=== PATIENT | female | born 1975 | race Caucasian/White ===

== ENCOUNTER 2016-11-20 05:47 | Day surgery (SDC) | payer OTHER, MEDICAID ==
[2016-11-17 09:27] LABS: BASOPHILS 0.3 % (0.0-2.0); EOSINOPHILS 0.9 % (0-7); HEMATOCRIT 46.3 % (36.0-48.0); HEMOGLOBIN 15.7 g/dL (12-16); IMMATURE GRANULOCYTES 0.4 % (0-5); LYMPHOCYTES 26.4 % (15-50); MCH 31.1 pg (26.0-34.0); MCHC 33.9 g/dL (31.0-37.0); MCV 91.7 fL (80.0-100.0); MEAN PLATELET VOLUME 9.3 fL (7.4-10.4); MONOCYTES 8.8 % (2-11); NEUTROPHILS 63.2 % (40-80); PLATELET COUNT 262 10x3/uL (130-400); RBC 5.05 10x6/uL (4.00-5.40); RDW 12.7 % (11.5-14.5); WBC 9.5 10x3/uL (4.8-10.8)
[~2016-11-20] VITALS: Ht 157.5 cm; Wt 99.8 kg
[~2016-11-20 05:47] MED LIST: ADVIL200 MG PO
[2016-11-20 06:22] VITALS: BP 108/73; Ht 157.5 cm; Wt 99.8 kg
[2016-11-20 06:31] LABS: HCG URINE NEGATIVE (NEGATIVE)
--- NOTE | 2016-11-20 08:07 | NUR ---
08 CALLED TO ROOM
--- NOTE | 2016-11-25 13:16 | OP ---
PATIENT NAME: KAYLA SEYMOUR MEDICAL RECORD: [id number] :79 LOCATION:[facility] ADMISSION DATE: SURGEON: EVY WOODWARD MD DATE OF OPERATION: 11/20/2016 PREOPERATIVE DIAGNOSES: 1. Low-grade squamous intraepithelial lesion Pap smear, CIN1 with positive endocervical curettage. 2. Persistent cervical dysplasia. POSTOPERATIVE DIAGNOSES: 1. Low-grade squamous intraepithelial lesion Pap smear, CIN1 with positive endocervical curettage. 2. Persistent cervical dysplasia. SURGEON: Evy Woodward MD ANESTHESIA: Laryngeal mask anesthesia with Nancy Sandhu CRNA. PROCEDURES: 1. Dilation and curettage. 2. Colposcopy with loop electrocautery excision procedure (LEEP). FINDINGS: Enlarged cervix with multiple nabothian cyst. Acetowhite epithelium noted at the 1 o'clock region of the transition zone, as well as the 10 o'clock region with extension of this acetowhite epithelium into the endocervical canal. Uterus sounded 10 cm. PROCEDURE IN DETAIL: After informed consent was given, the patient was taken to the operating room where laryngeal mask anesthesia was placed and found to be adequate. She was placed in a dorsal lithotomy position in [facility]. She was prepped and draped sterilely excluding an intravaginal prep. A red rubber catheter was placed into the bladder and bladder drained with approximately 100 cc of clear urine return. A bivalve speculum was then placed into the vagina and the cervix and vagina cleansed with vinegar solution. The colposcopy was then performed with findings as listed above. The cervix was then grasped anteriorly with a single-tooth tenaculum and the uterus was sounded, sounding to 10 cm. The cervix was then dilated to 7 mm and both sharp and suction curettage was employed until a gritty texture was noted circumferentially around the endometrial cavity. The single-tooth tenaculum was removed and pressure was held at the tenaculum sites with excellent hemostasis noted. The cervix was then injected locally with 12 cc of 1% lidocaine with epinephrine a 2, 4, 8, and 10 o'clock to aid in hemostasis. Vinegar was reapplied to the cervix as well as Lugol's solution. The acetowhite epithelial regions were again identified. The ectocervical portion of the LEEP procedure was then performed. Difficulty was encountered in obtaining the specimen due to the numerous nabothian cysts which ruptured in this process obscuring somewhat the specimen. Once the endocervical portion of the LEEP was completed, the square "cowboy hat" wire loop was then placed onto the LEEP device and the endocervical portion of the LEEP was obtained. This was also passed off the field as specimen. The rollerball was then replaced and the base of the LEEP was then cauterized. Monsel's was used additionally with excellent hemostasis noted. At completion of the procedure, the blue coated bivalve speculum was removed. The patient was returned to a supine position, awakened and taken into the recovery room in stable condition. The patient tolerated procedure well. Sponge, lap and instrument counts were OPERATIVE REPORT [id number] KAYLA SEYMOUR reported correct times 2. ESTIMATED BLOOD LOSS: Minimal. URINE OUTPUT: 100 cc. SPECIMENS: 1. Sharp and suction endometrial curettings. 2. Ectocervical portion of LEEP. 3. Endocervical portion of LEEP. COMPLICATIONS: None. TRANSINT:[id number] Voice Confirmation ID: [id number] DOCUMENT ID: [id number] EVY WOODWARD MD at 1316 CC: [id number] DICTATION DATE: 11/20/16 0848 PASTA PRESS OPERATOR: 11/20/16 1042 [facility] 11/20/16 [facility] [address] [place] [address]
[2017-01-12] MEDS ORDERED: PROVERA10 MG PO (08:59)
== END 2016-11-20 10:49 | disposition home or self-care (01) ==
LOC: D.OPS 05:47 → D.PAN 07:30 → D.OPS 07:30
PROVIDERS: Specialist
DX: N87.0 Mild cervical dysplasia (principal); N72 Inflammatory disease of cervix uteri; N88.8 Other specified noninflammatory disorders of cervix uteri

== ENCOUNTER 2016-12-12 10:56 | Emergency (ER) | payer OTHER, MEDICAID ==
[2016-11-20 06:22] VITALS: BMI 40.3
[2016-12-12 12:33] LABS: BASOPHILS 0.1 % (0.0-2.0); EOSINOPHILS 0.3 % (0-7); HEMATOCRIT 45.9 % (36.0-48.0); HEMOGLOBIN 15.6 g/dL (12-16); IMMATURE GRANULOCYTES 0.4 % (0-5); LYMPHOCYTES 10.9 % (15-50); MCH 30.6 pg (26.0-34.0); MCV 90.2 fL (80.0-100.0); MEAN PLATELET VOLUME 9.4 fL (7.4-10.4); NEUTROPHILS 81.3 % (40-80); PLATELET COUNT 283 10x3/uL (130-400); RBC 5.09 10x6/uL (4.00-5.40); RDW 12.8 % (11.5-14.5); WBC 19.8 10x3/uL (4.8-10.8)
[2016-12-12 12:39] LABS: ALBUMIN 3.6 g/dL (3.4-5.0); ALKALINE PHOSPHATASE 76 U/L (46-116); ALT (SGPT) 28 U/L (10-68); BILIRUBIN - TOTAL 0.34 mg/dL (0.2-1.3); CALC OSMOLALITY 272 mosm/kg (275-300); CALCIUM 9.1 mg/dL (8.5-10.1); CARBON DIOXIDE 28.1 mmol/L (21.0-32.0); CHLORIDE - SERUM 101 mmol/L (98-107); CREATININE - SERUM 0.8 mg/dL (0.6-1.3); GLUCOSE 97 mg/dL (74-106); POTASSIUM - SERUM 3.9 mmol/L (3.5-5.1); PROTEIN - SERUM 7.7 g/dL (6.4-8.2); SODIUM 136 mmol/L (136-145); UREA NITROGEN 16 mg/dL (7-18); eGFR NON AFRICAN AMERICAN 85 mL/min (90-120)
[2016-12-12 12:39] LABS: APPEARANCE SLT CLOUDY (CLEAR); BACTERIA MODERATE /hpf (NONE SEEN); BILIRUBIN NEGATIVE (NEGATIVE); COLOR YELLOW (YELLOW); GLUCOSE NEGATIVE (NEGATIVE); KETONE NEGATIVE (NEGATIVE); LEUKOCYTE ESTERASE 1+ (NEGATIVE); MUCUS <1+ /lpf (NONE SEEN); NITRITE NEGATIVE (NEGATIVE); PROTEIN TRACE mg/dL (NEGATIVE); RED CELLS - URINE 0-5 /hpf (0-5); SPECIFIC GRAVITY 1.015 (1.005-1.020); UROBILINOGEN NORMAL (NORMAL)
[2016-12-12 13:25] LABS: AMYLASE - SERUM 32 U/L (25-115); LIPASE 113 U/L (73-393)
[2016-12-12 13:28] LABS: HCG URINE NEGATIVE (NEGATIVE)
[2016-12-12 13:44] LABS: HCG SERUM NEGATIVE (NEGATIVE)
[2017-01-12] MEDS ORDERED: PROVERA10 MG PO (08:59)
== END 2016-12-12 16:34 | disposition home or self-care (01) ==
LOC: D.ER 10:56
PROVIDERS: Emergency Medicine; Nurse Practitioner Acute Care
DX: K57.92 Diverticulitis of intestine, part unspecified, without perforation or abscess without bleeding (principal); F17.200 Nicotine dependence, unspecified, uncomplicated

== ENCOUNTER 2016-12-25 12:49 | Emergency (ER) | payer OTHER, MEDICAID ==
[2016-11-20 06:22] VITALS: BMI 40.3
[2016-12-25 13:59] LABS: HCG SERUM NEGATIVE (NEGATIVE)
[2016-12-25 14:55] LABS: BASOPHILS 0.4 % (0.0-2.0); EOSINOPHILS 0.9 % (0-7); HEMATOCRIT 45.6 % (36.0-48.0); HEMOGLOBIN 15.3 g/dL (12-16); IMMATURE GRANULOCYTES 0.4 % (0-5); LYMPHOCYTES 24.8 % (15-50); MCH 30.4 pg (26.0-34.0); MCHC 33.6 g/dL (31.0-37.0); MCV 90.5 fL (80.0-100.0); MEAN PLATELET VOLUME 9.7 fL (7.4-10.4); NEUTROPHILS 65.5 % (40-80); PLATELET COUNT 195 10x3/uL (130-400); RBC 5.04 10x6/uL (4.00-5.40); RDW 12.8 % (11.5-14.5)
[2017-01-12] MEDS ORDERED: PROVERA10 MG PO (08:59)
== END 2016-12-25 18:54 | disposition home or self-care (01) ==
LOC: D.ER 12:49
PROVIDERS: Emergency Medicine
DX: R10.9 Unspecified abdominal pain (principal)

== ENCOUNTER 2017-01-15 10:00 | Day surgery (SDC) | payer OTHER ==
[2017-01-12 09:26] LABS: BASOPHILS 0.3 % (0.0-2.0); EOSINOPHILS 0.9 % (0-7); HEMATOCRIT 44.8 % (36.0-48.0); HEMOGLOBIN 15.3 g/dL (12-16); IMMATURE GRANULOCYTES 0.6 % (0-5); LYMPHOCYTES 32.3 % (15-50); MCH 30.5 pg (26.0-34.0); MCHC 34.2 g/dL (31.0-37.0); MCV 89.4 fL (80.0-100.0); MONOCYTES 9.7 % (2-11); NEUTROPHILS 56.2 % (40-80); PLATELET COUNT 213 10x3/uL (130-400); RBC 5.01 10x6/uL (4.00-5.40); RDW 13.2 % (11.5-14.5); WBC 9.3 10x3/uL (4.8-10.8)
[2017-01-12 09:41] LABS: CALC OSMOLALITY 274 mosm/kg (275-300); CALCIUM 9.2 mg/dL (8.5-10.1); CARBON DIOXIDE 27.8 mmol/L (21.0-32.0); CHLORIDE - SERUM 102 mmol/L (98-107); CREATININE - SERUM 0.7 mg/dL (0.6-1.3); GLUCOSE 96 mg/dL (74-106); POTASSIUM - SERUM 4.1 mmol/L (3.5-5.1); SODIUM 138 mmol/L (136-145); UREA NITROGEN 9 mg/dL (7-18); eGFR NON AFRICAN AMERICAN > 90 mL/min (90-120)
[~2017-01-15] VITALS: Ht 157.5 cm; Wt 98.6 kg
[2017-01-15] VITALS (7 sets, daily range): BP systolic 108–139; BP diastolic 37–89; Ht 157.5 cm; Wt 98.6 kg
[~2017-01-15 10:00] MED LIST changes: +PROVERA10 MG PO
[2017-01-15 12:37] LABS: HCG URINE NEGATIVE (NEGATIVE)
--- NOTE | 2017-01-15 14:33 | NUR ---
PATIENT CALLED TO UPDATE REGARDING DELAY OF SURGICAL PROCEDURE.
--- NOTE | 2017-01-15 21:44 | NUR ---
THE PATIENT REPORTS PRESSURE DISCOMFORT
--- NOTE | 2017-01-15 22:00 | NUR ---
RECEIVED PT VIA STRETCHER FROM [facility] WITH DR CORTES, PT TO ROOM 1217, PT TRANSFERS SELF TO BED, ADMITTING ASSESSMENT STARTED, SEE FLOW SHEET, VS INTIATED Q15MIN, IV IN RIGHT HAND INTACT WITH NO REDNESS OR EDEMA, NEW BAG OF LR HUNG VIA PUMP INFUSING AT 125 ML/HR, UMB AND 2 LOWER LAP INC CDI WITH NO DRAINAGE NOTED, ICE PACK AND SMALL PILLOW PLACED ON ABD, AVENDAÑO CATH INTACT, AVENDAÑO EMPTIED IN SURGERY, PT DENIES FLATUS, SCD'S CONNECTED TO PUMP AND WORKING PROPERLY, FRSH H20 SERVED, BEDDING PROVIDED TO SPOUSE, PT ORIENTED TO ROOM, BED IN LOW POSITION, SIDE RAILS X 2, CALL LIGHT IN REACH
--- NOTE | 2017-01-15 22:13 | NUR ---
DEMEROL OFFICE MESSENGER INITIATED PER MATTY CLIFFORD RN AND NIMO WRIGHT RN
--- NOTE | 2017-01-15 22:45 | NUR ---
NIMO RWIGHT RN TO ROOM, VS CONTINUE AT THIS TIME
--- NOTE | 2017-01-15 23:21 | NUR ---
PATIENT IS AROUSABLE WHEN WALKING INTO ROOM. VSS. ASKED HER HER PAIN LEVEL AND SHE STATES SHE HAS PERITONEAL PRESSURE FROM HER VAGINAL PACKING. NO NUMBER GIVEN FOR HER NUMERICAL PAIN SCORE. NO NEEDS OR COMPLAINTS AT THIS TIME. IS AT BEDSIDE.
[2017-01-16 00:10] VITALS: BP 142/83
--- NOTE | 2017-01-16 00:10 | NUR ---
PATIENT AROUSED WHEN ENTERED ROOM. VSS. PIV IN LEFT HAND REMAINS PATENT. NO EDEMA OR REDNESS NOTED. AVENDAÑO CATH WAS EMPTIED. PATIENT IS RESTING WITH EYES CLOSED BUT RESPONSE TO QUESTIONS. NON LABORED RESP NOTED. NO DISTRESS NOTED AND NOT REQUEST AT THIS TIME. ICE BAG CHANGED OUT AND REFRESHED AND PLACED ON ABDOMEN. PATIENTS IS RESTING BESIDE PATIENT IN CHAIR. NO NEEDS VOICED AT THIS TIME.
--- NOTE | 2017-01-16 02:05 | NUR ---
PT STAFF NURSE ANESTHETIST LIGHT, PT REQUESTED AND COVERED UP WITH BLANKET, PT REPOSITIONED SELF TO LEFT SIDE WITH PILLOW HENDING BACK FOR COMFORT AND SUUUPOT, PT DENIES FURTHER NEEDS OR PAIN AT THIS TIME
--- NOTE | 2017-01-16 03:30 | NUR ---
PATIENT CALLED VIA CALL LIGHT. STATED HER ICE BAG WAS LEAKING. ICE BAG WAS LEAKING. CHANGED OUT BACK AND REFILLED WILL FRESH ICE. ALSO CHANGED PATIENT GOWN AND BLANKET AND SHEET. PATIENT DID WELL. REMINDED PATIENT TO PUSH SHELL MOLDER BUTTON IF NEEDED. PATIENT DID PUSH BUTTON. PATIENT HAS NO OTHER NEEDS AT THIS TIME. PATIENTS IS AT THE BEDSIDE RESTING.
[2017-01-16 04:15] VITALS: BP 126/79
--- NOTE | 2017-01-16 04:15 | NUR ---
PATIENT AROUSED UPON ENTERING ROOM. VSS. LEFT FOREARN PIV REMAINS PATENT, NO REDNESS OR EDEMA NOTED. EMPTIED AVENDAÑO BAG. REPOSITONED PATENT. PLACED CALL LIGHT AND GARBAGE TRUCK HELPER PUMP BUTTON WITHIN PATIENT REACH. PATIENT PUSHED PAIN BUTTON. NO OTHER NEEDS VOICED. PATIENTS IS SLEEPING IN CHAIR BESIDE PATIENT.
--- NOTE | 2017-01-16 05:49 | NUR ---
PT LICENSED PSYCHOLOGIST DIRECTOR LIGHT, NEW BAG OF LR HUNG INFUSING VIA PUMP AT 125 ML/HR, ADM TORADOL SIVP PER MD ORDERS, SEE EMAR, FRESH ICE PACK TO ABD, NO VAG BLEEDING NOTED, PT REPOSITONED SELF IN BED, DENIES FURTHER NEEDS AT THIS TIME
--- NOTE | 2017-01-16 06:50 | NUR ---
CHECKED IN ON PATIENT- PATIENT IS RESTING QUIETLY WITH EYES CLOSED. NON LABORED RESP. NO GRIMACING NOTED.
--- NOTE | 2017-01-16 07:00 | NUR ---
SHIFT REPORT TO MADHAVI LAM RN
[2017-01-16 07:19] LABS: BASOPHILS 0.1 % (0.0-2.0); EOSINOPHILS 0.1 % (0-7); HEMATOCRIT 37.9 % (36.0-48.0); HEMOGLOBIN 12.6 g/dL (12-16); IMMATURE GRANULOCYTES 0.4 % (0-5); LYMPHOCYTES 14.9 % (15-50); MCH 29.7 pg (26.0-34.0); MCHC 33.2 g/dL (31.0-37.0); MCV 89.4 fL (80.0-100.0); MEAN PLATELET VOLUME 9.1 fL (7.4-10.4); MONOCYTES 5.8 % (2-11); NEUTROPHILS 78.7 % (40-80); PLATELET COUNT 202 10x3/uL (130-400); RBC 4.24 10x6/uL (4.00-5.40)
--- NOTE | 2017-01-16 07:40 | NUR ---
PATIENT IS AWAKE AND ALERT, SITTING UP IN THE BED WITH HOB UP 45 DREGREES. AVENDAÑO CATHETER PATENT TO BEDSIDE COLLECTION BAG. SHAFTING WORKER AND IVF PATENT TO RIGHT HAND IV INSERTION SITE IS WITHOUT EVIDENCE OF REDNESS OR INFILTRATION. ICE PACK TO THE BIKINI INCISION DRESSING THAT IS C/D/I. HER VSS, LUNGS ARE CLEAR, HR RRR, SCD'S ARE ON AND PUMPING. CALL LIGHT, BREAKFAST AND SHAFTING WORKER BUTTON ARE WITHIN HER REACH I LEFT. SHE STATES THAT SHE IS VERY HUNGRY TODAY.
[2017-01-16 07:44] LABS: CALC OSMOLALITY 267 mosm/kg (275-300); CALCIUM 8.2 mg/dL (8.5-10.1); CARBON DIOXIDE 27.4 mmol/L (21.0-32.0); CHLORIDE - SERUM 101 mmol/L (98-107); CREATININE - SERUM 0.7 mg/dL (0.6-1.3); GLUCOSE 125 mg/dL (74-106); POTASSIUM - SERUM 3.7 mmol/L (3.5-5.1); SODIUM 135 mmol/L (136-145); UREA NITROGEN 5 mg/dL (7-18); eGFR NON AFRICAN AMERICAN > 90 mL/min (90-120)
[2017-01-16 07:45] VITALS: BP 114/67
--- NOTE | 2017-01-16 08:30 | NUR ---
PATIENT SITTING UP IN HER BED, ICE PACK REFILLED. SHE DIDN'T EAT MUCH OF HER BREAKFASE, STATES THAT HUNGRY SHE WAS BEFORE THE FOOD ARRIVED, IT DIDN'T TAST GOOD AND SHE DIDN'T WANT IT. REPOSITIONED FOR COMFORT. CALL LIGHT IS WITHIN HER REACH.
--- NOTE | 2017-01-16 09:04 | NUR ---
AVENDAÑO AND VAG PACKING REMOVED PER DR Christina CORTES. NO DISTRESS NOTED.
--- NOTE | 2017-01-16 10:52 | NUR ---
PATIENT RESTING IN HER BED, FLAT. IN THE BEDSIDE CHAIR READING THE PAPER. SHE AWOKE EASILY TO MY ENTRY. DENIES DISCOMFORT, RATES HER PAIN A 2. NO NEEDS NOTED, CALL LIGHT IS WITHIN HER REACH.
--- NOTE | 2017-01-16 12:52 | NUR ---
up in shower. no c/odizziness or discomfort
[2017-01-16] MEDS ORDERED: IBUPROFEN600 MG PO (14:19)
[2017-01-16] MEDS ORDERED: PERCOCET 5-3251 TAB PO (14:19)
--- NOTE | 2017-01-16 14:31 | NUR ---
PT LYING ON BED. NO COMPLAINTS VOICED. 2 VOIDS NOTED QS SINCE FLOEY REMOVAL.
--- NOTE | 2017-01-16 15:20 | NUR ---
DISCUSSED AKI'S DISCHARGE INSTRUCTIONS. INCLUDED FOLLOW UP APPT INFO, WRITTEN MEDICATION INFO, INCISION CARE, S/S OF INFECTIONS AND PELVIC REST. AT THE BEDSIDE. DENIES QUESTIONS. PRESCRIPTIONS GIVEN.
--- NOTE | 2017-01-16 19:31 | OP ---
PATIENT NAME: KAYLA SEYMOUR MEDICAL RECORD: [id number] :79 LOCATION:[facility] D.1217 ADMISSION DATE:01/15/17 SURGEON: CORIE WOODWARD MD DATE OF OPERATION: 01/15/2017 PREOPERATIVE DIAGNOSES: 1. Abnormal uterine bleeding, menorrhagia. 2. Simple endometrial hyperplasia. 3. Uterine hypertrophy. 4. Persistent cervical dysplasia. 5. Morbid obesity. POSTOPERATIVE DIAGNOSES: 1. Abnormal uterine bleeding, menorrhagia. 2. Simple endometrial hyperplasia. 3. Uterine hypertrophy. 4. Persistent cervical dysplasia. 5. Morbid obesity. SURGEON: Corie Woodward MD. ANESTHESIA: General endotracheal anesthesia with Lamin Armando CRNA. PROCEDURES: Laparoscopic-assisted vaginal hysterectomy with bilateral distal salpingectomy. FINDINGS: Enlarged uterus, normal-appearing tubes and ovaries bilaterally. Cervix with evidence of prior LEEP. Significant adiposity/periperitoneal adipose. Unable to discern ureteral peristalsis at start nor completion of the procedure due to body habitus. Clear urine noted throughout and at end of procedure with good urine output througout duration of procedure. PROCEDURE IN DETAIL: After informed consent was given, the patient was taken to the operating room where general endotracheal anesthesia was placed and found to be adequate. She was placed in a dorsal lithotomy position in [facility]. She was prepped and draped sterilely including a vaginal prep. A Boston catheter was placed in the bladder and bladder drained with clear urine return. A bivalve speculum was then placed in the vagina, the cervix was visualized and grasped anteriorly with a single-tooth tenaculum. A Pelosi uterine manipulator was then placed with ease and the bivalve speculum removed. The patient was placed into a ski position, gloves were changed and infraumbilical incision was made with a scalpel, and with elevation of the anterior abdominal wall, a 5-mm Optiview port was placed under direct visualization. No obvious injury to underlying structures was noted. The abdomen was insufflated with 2 L of CO2 gas. Opening pressure noted to be 5mmHg. Two additional 5-mm ports were placed in the right and left lower quadrants under direct visualization. The patient was placed into Trendelenburg and the pelvic structures were brought into view with findings as listed above. The round ligament was then grasped with an atraumatic grasper and held gently on traction as the Gyrus was used to cauterize and the Harmonic scalpel used to transect the right round ligament. The anterior leaf of the broad ligament was then opened heading medially from the lateral region. The right fallopian tube was then cauterized and transected proximally and the utero-ovarian ligament was cauterized and transected. Attempt was made to visualize the ureters, but due to body habitus, this could not be accomplished due to periperitoneal adiposity. OPERATIVE REPORT [id number] KAYLA SEYMOUR We continued cauterizing and transecting the parametrial tissue until reaching the region of the uterine blood vessels. Attention was then turned to the opposite side. The left round ligament was gently held on traction as the Gyrus was used to cauterize and the Harmonic scalpel to transect the left round ligament. The anterior leaf of the broad ligament was then opened and a bladder flap was created meeting in the midline from the lateral to medial region utilizing the Harmonic scalpel. The left fallopian tube was then cauterized with the Gyrus and transected with the Harmonic scalpel proximally and the utero-ovarian ligament in a similar fashion was cauterized with the Gyrus and transected with the Harmonic scalpel. In a similar fashion, we then continued cauterizing and transecting the parametrial tissue until reaching the region of the uterine vessels. We again attempted to visualize the ureter on the left side, but again, were not successful. Clear urine was noted in boston cather with good urine output thus far. Allpedicles were observed and noted to be hemostatic. All instruments were removed and the abdomen was desufflated. Attention was then turned to the vaginal portion of the procedure. The patient was placed into steep Lithotomy position. A weighted speculum was placed posteriorly, a [place]ork[place] anteriorly and sidewall retractors were utilized laterally. The Pelosi uterine manipulator was removed. The single-tooth tenaculum was removed and the cervix was grasped anteriorly and posteriorly with thyroid tenacula. The cervix was then gently held on traction as the Bovie cautery was used to create a circumferential incision around the vaginal mucosa. The posterior aspect of the vaginal mucosa was then grasped with pickups and the cul-de-sac was entered sharply with the Torres scissors. The long weighted speculum was then placed through this, replacing the short weighted speculum. The uterosacral ligaments were identified on either side, clamped with curved Bernie clamps, transected with the Torres scissors, and suture ligated with 0 Vicryl stick ties. These were held on hemostats bilaterally. The anterior aspect of the vaginal mucosa was then elevated and the anterior cul-de-sac was entered atraumatically. The Forkland was placed through this to retract the bladder and protect it. We then began clamping the cardinal ligaments with 4 pedicles on either side, clamping first with a curved Bernie clamp, transected with Torres scissors, and suture ligating with 0 Vicryl stick ties. Once the 4 pedicles on either side had been transected, the uterus and cervix were removed and passed off the field as specimen. All of the pedicles were then observed and noted to be hemostatic. The long-weighted speculum was replaced with the short-weighted speculum. A sponge stick was placed through the cuff to allow the anterior and posterior aspects of the peritoneum to be visualized. These were then grasped with Allis clamps and the peritoneum was then closed in a pursestring fashion with 0 Vicryl incorporating the uterosacral ligaments into the closure. Once this was closed, the uterosacral ligament pedicle sutures were ligated in the midline as well. The vaginal cuff was then closed with 0 Vicryl in a running locked fashion. Excellent hemostasis was noted. The vagina was irrigated profusely and noted to be hemostatic. The vagina was then packed with a Premarin-soaked Kerlix sponge. Clear urine was noted at completion of this portion of the procedure. Attention was then returned to laparoscopy. The patient was returned to a ski position. Gloves were changed. The abdomen was reinsufflated with approximately 2 L of CO2 gas. The patient was again replaced into Trendelenburg and structures were again brought into view. No areas of oozing or bleeding were noted. The pelvis was irrigated profusely and noted to be hemostatic. The right and left fallopian tubes were then grasped with atraumatic graspers and held gently on traction as the Gyrus was used to cauterize and the Harmonic scalpel to resect them on either side, and these were OPERATIVE REPORT [id number] KAYLA SEYMOUR removed through the 5-mm trocar ports and passed off the field as specimen. All pedicles were again identified and noted to be hemostatic. We attempted a final visualization of the ureters, but were unable to visualize them. The right and left lower quadrant ports were removed under direct visualization. Hemostasis was assured. The abdomen was desufflated and the 5-mm umbilical port was removed. All 3 port sites were closed with 3-0 Monocryl in a subcuticular fashion with Dermabond, Steri-Strips, and Band-Aids applied atop. The patient was returned to a supine position, awakened and taken into the recovery room in stable condition. As noted in the findings, due to this significant adiposity and periperitoneal fatty tissue, we were unable to discern the ureteral peristalsis at the start nor at the completion of the procedure, but clear urine was noted throughout the procedure and the patient produced approximately 500 cc of urine during the procedure. SPECIMENS: Uterus, cervix, bilateral distal fallopian tube/fimbria. ESTIMATED BLOOD LOSS: 200 cc. IV FLUIDS: 1200 cc of crystalloid. URINE OUTPUT: 500 cc. COUNTS: Sponge, lap, needle and instrument counts reported correct times 2. COMPLICATIONS: None. TRANSINT:[id number] Voice Confirmation ID: [id number] DOCUMENT ID: [id number] CORIE WOODWARD MD at 1931 CC: [id number] DICTATION DATE: 01/15/172213 PACKAGE CAR DRIVER: 01/16/17 0108 DIS IN 01/16/17 [facility] [address] [place] [address]
== END 2017-01-16 16:04 | disposition home or self-care (01) ==
LOC: OBSVTIME → D.OPS 10:00 → D.WS 21:42 → OBSVTIME 21:42 → D.OPS 21:42 → D.WS 01-16 16:04
PROVIDERS: Specialist
DX: N93.9 Abnormal uterine and vaginal bleeding, unspecified (principal); N85.00 Endometrial hyperplasia, unspecified; E66.01 Morbid (severe) obesity due to excess calories; Z68.39 Body mass index [BMI] 39.0-39.9, adult